=== PATIENT | female | born 1945 | race Caucasian/White ===

== ENCOUNTER → 2018-03-19 | Outpatient (CLI) | payer OTHER | END | disposition home or self-care (01) | LOC: NUCLEAR 02-03 10:30 | DX: I10 Essential (primary) hypertension (principal); M81.0 Age-related osteoporosis without current pathological fracture ==

== ENCOUNTER → 2018-03-25 | Outpatient (CLI) | payer OTHER | END | disposition home or self-care (01) | LOC: NUCLEAR 10:00 | DX: I10 Essential (primary) hypertension (principal); R07.89 Other chest pain; I52 Other heart disorders in diseases classified elsewhere ==

== ENCOUNTER 2018-10-05 07:49 | Outpatient (CLI) | payer OTHER | END 2018-10-05 07:59 | disposition home or self-care (01) | LOC: NUCLEAR 07:49 | DX: I10 Essential (primary) hypertension (principal); I25.10 Atherosclerotic heart disease of native coronary artery without angina pectoris; R07.89 Other chest pain ==

== ENCOUNTER 2019-02-10 15:13 | Outpatient (CLI) | payer OTHER | END 2019-02-10 15:18 | disposition home or self-care (01) | LOC: NUCLEAR 15:13 | DX: I87.2 Venous insufficiency (chronic) (peripheral) (principal) ==